=== PATIENT | female | born 1985 | race Two or more races ===

== ENCOUNTER 2024-10-12 20:48 | Emergency (ER) | payer MEDICAID, SELFPAY ==
[2024-10-12 21:32] VITALS: BP 156/100; BP 168/98; PULSE 106; RESP 16; TEMP 36.8; O2SAT 100
--- NOTE | 2024-10-12 21:49 | XR_ITS ---
Examination: PA upright chest single view Technique: PA upright chest single view Exam date and time: October 12, 2024 2155 hrs. Indications: Onset dizziness chest pain today Findings: Normal heart size. Lungs are clear. The osseous structures are intact Impression: No active disease
--- NOTE | 2024-10-12 21:49 | PD.EDRME ---
Rapid Medical Screening Exam [facility] Arrival date/time: 10/12/24 20:48 39F with no significant PMH presents to ED with 1 hour of dizziness, SOB, and heart palps while eating dinner today. Patient denies emotional conversation/trigger. Patient also denies history of anxiety/depression. Chief Complaint: Dizziness Vital signs: Vital Signs Temperature 98.3 F 10/12/24 21:32 Pulse Rate 106 H 10/12/24 21:32 Respiratory Rate 16 10/12/24 21:32 Blood Pressure 156/100 H 10/12/24 21:32 Pulse Oximetry (%) 100 10/12/24 21:32 Oxygen Delivery Method Room Air 10/12/24 21:32
[2024-10-12 22:16] LABS: Collection Type, Urine Clean Catch
[2024-10-12 22:19] LABS: Basophils % (Auto) 0 % (0-2.5); Eosinophils # (Auto) 0.1 Thou/mm3 (0.0-0.5); Eosinophils % (Auto) 2 % (0-10); Hematocrit 37.4 % (36.0-46.0); Hemoglobin 12.8 g/dL (12.0-16.0); Immature Granulocytes % (Auto) 1 % (0-0); Immature Granulocytes Auto 0.04 Thou/mm3 (0.00-0.00); Lymphocytes # (Auto) 2.4 Thou/mm3 (1.0-4.8); Lymphocytes % (Auto) 30 % (10-50); Mean Corpuscular HGB Conc 34.2 g/dl (31.0-37.0); Mean Corpuscular Hemoglobin 30.5 pg (25.0-35.0); Mean Corpuscular Volume 89 fL (80-100); Monocytes # (Auto) 0.5 Thou/mm3 (0.0-0.8); Monocytes % (Auto) 6 % (0-12); Neutrophils # (Auto) 5.2 Thou/mm3 (1.8-7.7); Neutrophils % (Auto) 63 % (37-80); Nucleated Red Blood Cell % 0 /100 WBC (0); Platelet Count 292 Thou/mm3 (140-440); RDW Standard Deviation 40.2 fL (36.4-46.3); Red Blood Count 4.19 Miln/mm3 (4.00-5.20); White Blood Count 8.2 Thou/mm3 (3.6-11.0)
[2024-10-12 22:31] LABS: Bilirubin,Urine Negative (Negative); Blood,Urine 1+ (Negative); Clarity,Urine Clear (Clear/Hazy); Color,Urine Lt-Yellow (Lt Yel-Yel); Glucose, Urine Negative (Negative); Ketones,Urine Negative (Negative); Leukocyte Esterase,Urine Negative (Negative); Nitrite,Urine Negative (Negative); PH,Urine 6.5 (5.0-7.0); Protein,Urine Trace (Neg - Trace); RBC,Urine 25 /hpf (0-3); Squamous Epithelial Cell,Urine 1 /hpf (0-5); Urobilinogen,Urine Negative mg/dL (0.0-1.0); WBC,Urine 2 /hpf (0-5)
[2024-10-12 22:32] LABS: Alanine Aminotransferase 28 U/L (10-49); Albumin, Serum 5.1 gm/dL (3.5-5.0); Alkaline Phosphatase 79 U/L (46-116); Anion Gap 7 (7-16); Aspartate Amino Transferase 25 U/L (0-34); BUN/Creatinine Ratio 21 Ratio (12-20); Bilirubin,Total 0.3 mg/dL (0.3-1.2); Blood Urea Nitrogen 17 mg/dL (9-23); Calcium 9.4 mg/dL (8.3-10.6); Calcium (Corrected) 9.4 mg/dL (8.5-10.1); Carbon Dioxide 27.1 mMol/L (20.0-31.0); Chloride 107 mMol/L (98-107); Creatinine (Component) 0.8 mg/dL (0.6-1.3); Globulin 2.5 gm/dL (2.3-3.5); Glucose 106 mg/dL (74-106); Osmolality,Calculated 282 (275-295); Potassium 3.5 mMol/L (3.4-5.1); Sodium 141 mMol/L (136-145); Total Protein 7.6 gm/dL (5.7-8.2); Troponin I < 0.002 ng/mL (0.0-0.045); eGFR > 60 See Note
[2024-10-12 22:39] LABS: Amphetamine/Methamp Scrn,U Negative (Negative); Barbiturate Screen,Urine Negative (Negative); Benzodiazepines Screen,Urine Negative (Negative); Benzoylecgonine Screen, Ur Negative (Negative); Fentanyl Screen,Urine Negative (Negative); Opiate Screen,Urine Negative (Negative); THC Screen,Urine Negative (Negative)
[2024-10-12 22:40] LABS: HCG Qualitative,Urine Negative
[2024-10-12 23:11] VITALS: BP 123/76; BP 131/88; PULSE 88; RESP 16; TEMP 36.7; O2SAT 100
--- NOTE | 2024-10-13 02:10 | PD.EDDIZZY ---
ED Dizzyness RME/HPI General Chief Complaint: Dizziness Stated Complaint: Dizziness/near syncope/palpitations Arrival date/time: 10/12/24 20:48 Limitations: no limitations RME / HPI RME / HPI Narrative: 10/12/24 20:48 39F with no significant PMH presents to ED with 1 hour of dizziness, SOB, and heart palps while eating dinner today. Patient denies emotional conversation/trigger. Patient also denies history of anxiety/depression. ---- Dr. Rodriguez's Main ED Evaluation: 39-year-old female with no significant past medical history coming in with dizziness that started right after eating dinner. Patient states the palpitations lasted approximately 5 minutes. Patient states she had fluttering in her chest and had anxiety. She did not think it was anything related to any work issues or home issues. On arrival to the emergency department patient was already symptom-free. No passing out, syncope, trauma, and has been eating well. No nausea vomiting or diarrhea. No fevers. No worst headache of life. No abdominal pain. Related Data Previous Rx's ?Medication ?Instructions ?Recorded ibuprofen 600 mg tablet 600 mg PO Q6HR PRN PAIN #40 tabs 11/20/16 Allergies Allergy/AdvReac Type Severity Reaction Status Date / Time No Known Allergies Allergy Verified 10/12/24 20:51 Review of Systems Review of Systems Systems Reviewed: All systems reviewed, normal except as documented Past Medical History Social History SMOKING STATUS: Never smoker ED Exam General Limitations: Present no limitations General appearance: Present alert and in no apparent distress Head Head exam: Present atraumatic Eye Eye exam: Present normal appearance, PERRL and EOMI ENT ENT exam: Present normal exam, normal oropharynx and mucous membranes moist Neck Neck exam: Present normal inspection, full ROM and trachea midline Chest Chest inspection: Present normal inspection and symmetric chest wall rise Respiratory Respiratory exam: Present normal lung sounds bilaterally Cardiovascular Cardiovascular exam: Present regular rate, normal rhythm and normal heart sounds Abdominal Exam Abdominal exam: Present soft and normal bowel sounds Extremities Exam Extremities exam: Present normal inspection and full ROM Back Exam Back exam: Present normal inspection and full ROM Neurological Exam Neurological exam: Present alert, oriented X3 and CN II-XII intact Psychiatric Psychiatric exam: Present normal affect and normal mood Skin Skin exam: Present warm, dry, intact and normal color Course Course Course Narrative: CXR is ordered for determining the etiology of palpitations. Quality Measures none Orders Category Date Time Status EKG (ED ONLY) *Do not use* NOW Care 10/12/24 20:50 Completed EKG (ED Only) Stat Exams 10/12/24 20:50 Ordered XR chest 1V portable Stat Exams 10/12/24 21:49 Completed CBC Stat Lab 10/12/24 21:59 Completed Comprehensive Metabolic Panel Stat Lab 10/12/24 21:59 Completed Drug Screen,Urine Stat Lab 10/12/24 22:00 Completed HCG Qualitative,Urine Stat Lab 10/12/24 22:00 Completed Troponin I Stat Lab 10/12/24 21:59 Completed Troponin I Stat Lab 10/13/24 01:44 Completed Urinalysis Stat Lab 10/12/24 22:00 Completed Vital Signs Vital signs: Vital Signs Temperature 98.3 F 10/12/24 21:32 Pulse Rate 106 H 10/12/24 21:32 Respiratory Rate 16 10/12/24 21:32 Blood Pressure 156/100 H 10/12/24 21:32 Pulse Oximetry (%) 100 10/12/24 21:32 Oxygen Delivery Method Room Air 10/12/24 21:32 Pulse ox is 100% on room air, which is normal according to my interpretation. Procedures -ED EKG Interpretation #1: Date of EK10/12/24 Time of EK:40 Rate: 92 Interpretation: Interpreted by me EKG Impression: Normal sinus rhythm Additional EKG comment: No S elevations or depressions. Normal QTc. No previous EKG for comparison Dizziness MDM Narrative MDM Narrative:: Differential diagnosis includes arrhythmia, electro abnormalities, UTI, viral infection The patient otherwise appears well here EKG is nonspecific and there is no periods. Patient data External records reviewed:: [facility] previous records (Per chart review, patient has no previous ED visits or admissions to this facility.) Clinical information provided by:: patient Social determinants that could affect healthcare access:: none Patient has the following chronic illnesses:: none How is presenting disease/condition affected by chronic disease/condition?: no chronic disease Evaluation data The following diagnostics were reviewed and interpreted by me:: lab results, radiology exam(s) and EKG tracing(s) Lab and/or radiology exams considered but not ordered:: none Interpretation Summary: CBC is normal, CMP is normal, initial and repeat troponins are normal, UA is unremarkable, HCG is negative, UDS is negative, according to my interpretation. CXR is negative for any infiltrates, pleural effusions, or cardiomegaly, according to my interpretation. I have personally reviewed the radiology data and agree with the radiologist's interpretation below: [place] Report Signed Patient: LORE MOISE Record#: [id number] Birthdate: 1985 Age/Sex: 39 / F Location: [facility] Attending Dr: Ordering Physician: Rodolfo Escobar PA-C Date of Service: 10/12/24 Procedure(s): XR chest 1V portable Accession Number(s): [id number] cc: Winston Smiley MD; Lalo Fischer MD; Rodolfo Escobar PA-C~ Examination: PA upright chest single view Technique: PA upright chest single view Exam date and time: October 12, 2024 2155 hrs. Indications: Onset dizziness chest pain today Findings: Normal heart size. Lungs are clear. The osseous structures are intact Impression: No active disease Dictated By: Lalo Fischer MD Signed By: <Electronically signed by Lalo Fischer MD in [place]> 10/12/24 2210 Medications / Prescriptions Medications or Prescriptions considered but not ordered:: none Medication administrations:: see above, if any Consultations Consultation(s) initiated? (list below): No Diagnosis Dizziness Differential Diagnosis: other (arrhythmia, electrolyte abnormalities, UTI, viral infections) Most likely diagnosis given after review of the tests above:: see below Admission Indicated Admission indicated?: not indicated Admission Request Was there a request for admission?: No Disposition Plan Disposition Plan: Discharge Discharge Attestation Discharge Attestation: The patient and all family members were given an opportunity to ask questions and understood the discharge instructions. Discharge instructions specifically effects, indications for sooner follow up or return to the emergency department, and the expected course of current diagnosis. Patient condition: Stable Discharge Plan Plan Patient Disposition: HOME (Self Care) Patient condition on transfer: Stable Prescriptions/Referrals Prescriptions/Med Rec: No Action ibuprofen 600 MG tablet 600 mg PO Q6HR PRN (Reason: PAIN) Qty: 40 0RF Referrals: Winston Smiley MD [Primary Care Provider] - In 1 week Problem List Clinical Impression: Dizziness Patient/Caregiver Discharge Instructions Education Materials: ED Dizziness, Uncertain Cause Print Language: Congolese Stand Alone Forms: Taryn Award Info., Patient Portal Info Letter
[2024-10-13 02:12] LABS: Troponin I < 0.002 ng/mL (0.0-0.045)
== END 2024-10-13 03:21 | disposition home or self-care (01) ==
PROVIDERS: Physician Assistant; Emergency Provider Emergency Medicine; PCP Family Medicine
DX: R42 Dizziness and giddiness (principal); R07.9 Chest pain, unspecified; R94.31 Abnormal electrocardiogram [ECG] [EKG]
CPT/HCPCS: 36415; 71045; 80053; 80307; 81001; 81025; 84484; 85025; 93005; 99283